=== PATIENT | male | born 1960 | race Asian ===

== ENCOUNTER 2018-12-10 18:35 | Inpatient (IN) | payer BC ==
[~2018-12-10] VITALS: Ht 177.8 cm; Wt 81.4 kg
[~2018-12-10 18:35] MED LIST: MOTRIN 200200 MG/TAB PO; NIFEREX-150 501 CA1 PO; PRILOSEC 20MG20 MG PO; PROBENECID500 MG PO; ZYRTEC 10MG10 MG PO
[2018-12-10 19:20] LABS: BASO % 0.3 % (0.0-2.0); EOS # 0.1 (0.0-0.7); EOS % 1.8 % (0-4.0); GRAN # 4.1 (1.4-6.5); GRAN % 60.5 % (42.2-75.2); HEMOGLOBIN 10.1 g/dl (13.5-18.0); LYMPH # 2.1 (1.2-3.4); LYMPH % 30.2 % (20.0-51.0); MEAN CELL VOLUME 87 fl (80.0-100.0); MEAN CORPUSCULAR HEMOGLOBIN 31 pg (27.0-31.0); MEAN CORPUSCULAR HGB CONC 35 g/dl (33.0-37.0); MEAN PLATELET VOLUME 11.3 fl (7.4-10.4); MONO # 0.5 (0.1-0.6); MONO % 6.8 % (1.7-9.3); PLATELET COUNT 220 K/mm3 (130-400); RED BLOOD COUNT 3.31 M/mm3 (4.20-5.60); REDCELL DISTRIBUTION WIDTH-CV 12.5 % (11.5-14.5)
[2018-12-10 19:24] LABS: HEMATOCRIT 28.7 % (42.0-52.0)
[2018-12-10 19:36] LABS: ALBUMIN 3.5 gm/dL (3.5-5.0); BILIRUBIN,TOTAL 0.5 mg/dL (0.0-1.0); CALCIUM 8.9 mg/dL (8.4-10.2); CREATININE, serum 1.13 (0.66-1.25); POTASSIUM 4.3 mmol/L (3.4-5.0); TOTAL PROTEIN 6.1 gm/dL (6.4-8.2)
--- NOTE | 2018-12-10 20:36 | NUR ---
Pt. arrived to the floor via wheelchair. Pt. is A&OX3 and independent in the room. Addmission assessment complete at this time. Pt. reports a headache with a pain level of 2 at this time. Pt. denies further needs call light within reach.
[2018-12-10 20:54] VITALS: BP 110/61; PULSE 64; TEMP 97.9
[2018-12-11] VITALS (12 sets, daily range): BP systolic 96–120; BP diastolic 55–72; PULSE 57–68; TEMP 97.6–98.5
[2018-12-11 03:09] LABS: BASO % 0.3 % (0.0-2.0); EOS # 0.2 (0.0-0.7); EOS % 2.2 % (0-4.0); GRAN # 3.7 (1.4-6.5); HEMATOCRIT 25.1 % (42.0-52.0); HEMOGLOBIN 8.8 g/dl (13.5-18.0); LYMPH # 2.9 (1.2-3.4); LYMPH % 39.6 % (20.0-51.0); MEAN CELL VOLUME 87 fl (80.0-100.0); MEAN CORPUSCULAR HEMOGLOBIN 31 pg (27.0-31.0); MEAN CORPUSCULAR HGB CONC 35 g/dl (33.0-37.0); MONO # 0.5 (0.1-0.6); MONO % 6.3 % (1.7-9.3); PLATELET COUNT 187 K/mm3 (130-400); RED BLOOD COUNT 2.88 M/mm3 (4.20-5.60); REDCELL DISTRIBUTION WIDTH-CV 12.7 % (11.5-14.5)
[2018-12-11 03:18] LABS: CALCIUM 8.3 mg/dL (8.4-10.2); CREATININE, serum 0.96 (0.66-1.25)
--- NOTE | 2018-12-11 05:53 | NUR ---
Pt. slept well through the night. Pt. remains A&OX3. IV to rt. forearm remains patent, IV fluids infusing per orders. Pt. denies pain or other needs, call light within reach.
--- NOTE | 2018-12-11 06:45 | NUR ---
appears to be dozing but awakens easily, bedside shift report received from SERGIO Gomes
--- NOTE | 2018-12-11 07:36 | NUR ---
resting in bed watching TV, full assessment completed, see interventions for further info, denies needs at this time
--- NOTE | 2018-12-11 08:45 | NUR ---
Dr Contreras and care team in to see patient, informed Dr Guevara will take for EGD this afternoon, verbalizes understanding
--- NOTE | 2018-12-11 08:55 | NUR ---
YANG and SW student met with the patient and patient's , José, to discuss discharge plan. The patient lives in [place] with his . He reports independence with ADLs and does not use any DME. The patient's PCP is Dr. Clifford Marino and he receives his medications at the [facility]. He reports no difficulties obtaining his meds. The patient does not have advanced directives, but he was interested in obtaining a form for DPO[employer]-[facility]. YANG provided. The patient plans to return home with his upon discharge. No additional needs at this time.
[2018-12-11 09:37] LABS: HEMOGLOBIN 8.5 g/dl (13.5-18.0)
[2018-12-11 09:38] LABS: HEMATOCRIT 24.2 % (42.0-52.0)
--- NOTE | 2018-12-11 10:39 | NUR ---
appears to be dozing but awakens easily, denies needs
--- NOTE | 2018-12-11 10:54 | NUR ---
Initial visit; Patient thanked Tile Erector for looking in on him and wishing him well.
--- NOTE | 2018-12-11 11:20 | NUR ---
up and about in room independently, consent signed
--- NOTE | 2018-12-11 13:00 | NUR ---
remains independent in room, denies needs
--- NOTE | 2018-12-11 14:39 | NUR ---
appears to be sleeping, in bed with lights off, eyes closed, resp quiet and easy, at bedside and appears to be sleeping
--- NOTE | 2018-12-11 16:00 | NUR ---
continues to doze, awakened and informed his procedure will be around 5:00 pm, verbalizes understanding
--- NOTE | 2018-12-11 16:30 | NUR ---
IV fluids changed from pumpt to gravity tubing, to endoscopy per WC
--- NOTE | 2018-12-11 17:50 | NUR ---
returned from endoscopy per bed, denies pain or needs, will provide water per his request
--- NOTE | 2018-12-11 18:00 | NUR ---
takes sips of water and tolerates well without chocking, offered him to order something to eat, declined and states will bring him something to eat
--- NOTE | 2018-12-11 18:56 | NUR ---
appears to be sleeping, in bed with lights off, eyes closed, resp quiet and easy, bedside shift report given to SERGIO Gomes
--- NOTE | 2018-12-11 19:45 | NUR ---
Pt. laying in bed at this time. Pt. is A&OX3, assessment complete. IV to rt. forearm patent, IV fluids infusing per orders. Pt. tolerating PO at this time. Diet advanced per orders. Pt. denies pain or other needs, call light within reach.
[2018-12-12 00:48] VITALS: BP 117/63; PULSE 61; TEMP 98.3
[2018-12-12 04:52] VITALS: BP 99/51; PULSE 63; TEMP 98.6
[2018-12-12 07:20] LABS: BASO % 0.4 % (0.0-2.0); EOS # 0.1 (0.0-0.7); EOS % 2.2 % (0-4.0); GRAN # 2.9 (1.4-6.5); GRAN % 53.8 % (42.2-75.2); LYMPH # 1.9 (1.2-3.4); LYMPH % 35.4 % (20.0-51.0); MEAN CELL VOLUME 89 fl (80.0-100.0); MEAN CORPUSCULAR HGB CONC 35 g/dl (33.0-37.0); MEAN PLATELET VOLUME 11.3 fl (7.4-10.4); MONO # 0.4 (0.1-0.6); MONO % 7.8 % (1.7-9.3); PLATELET COUNT 177 K/mm3 (130-400); RED BLOOD COUNT 2.63 M/mm3 (4.20-5.60); REDCELL DISTRIBUTION WIDTH-CV 12.9 % (11.5-14.5)
[2018-12-12 07:24] LABS: HEMATOCRIT 23.5 % (42.0-52.0); HEMOGLOBIN 8.1 g/dl (13.5-18.0); MEAN CORPUSCULAR HEMOGLOBIN 31 pg (27.0-31.0)
[2018-12-12 07:28] LABS: CREATININE, serum 0.92 (0.66-1.25); POTASSIUM 3.6 mmol/L (3.4-5.0)
[2018-12-12 08:44] VITALS: BP 115/67; PULSE 69; TEMP 97.9
--- NOTE | 2018-12-12 08:50 | NUR ---
Patient in bed resting. Alert and oriented x 3. Shift assessment complete. IV fluids infusing via pump. Denies pain or further needs at this time. at bedside.
--- NOTE | 2018-12-12 11:32 | NUR ---
First visit from the park manager. No needs right now.
[2018-12-12] MEDS ORDERED: FERRO-TIME325 MG PO (11:58)
[2018-12-12] MEDS ORDERED: PROTONIX 40MG T40 MG PO (11:59)
[2018-12-12 12:33] VITALS: BP 123/71; PULSE 60; TEMP 98.6
--- NOTE | 2018-12-12 13:22 | NUR ---
Discharge instructions provided to patient. Educated on keeping follow up appointments. Patient educated on Meds. Denies further questions. Verbalized understanding. Discontinued IV to left forarm, catheter tip intact. Tolerated procedrue well. Denies further needs at this time.
--- NOTE | 2018-12-12 13:30 | NUR ---
Patient ambulated out with surgical staff and spouse.
== END 2018-12-12 13:30 | disposition home or self-care (01) | DRG 378 ==
LOC: COL.ER 18:35 → SURG 19:46
PROVIDERS: Emergency Medicine; Internal Medicine Gastroenterology; Nurse Practitioner; Physician Assistant; ADMIT Hospitalist
PROC: 0DB68ZX Excision of Stomach, Via Natural or Artificial Opening Endoscopic, Diagnostic (ICD-10-PCS; principal; 2018-12-11 17:00)
DX: K25.4 Chronic or unspecified gastric ulcer with hemorrhage (principal); D62 Acute posthemorrhagic anemia; K29.81 Duodenitis with bleeding; Z87.891 Personal history of nicotine dependence; I95.9 Hypotension, unspecified
CPT/HCPCS: 99222-AI; 99239; C9113; J2250; J3010; J7030